=== PATIENT | male | born 1995 | race African-American/Black ===

== ENCOUNTER 2017-12-08 16:05 | Emergency (ER) | payer SELFPAY ==
[2017-12-08] MEDS ORDERED: traMADol HCl 50 MG TAB ONE (16:20)
[2017-12-08] MEDS ORDERED: Ibuprofen 800 MG TAB ONE (16:20)
== END 2017-12-08 16:25 | disposition home or self-care (01) ==
LOC: MADERS 16:05
DX: M54.5 Low back pain (principal)
CPT/HCPCS: 99283

== ENCOUNTER 2019-01-12 20:45 | Emergency (ER) | payer BC, SELFPAY ==
--- NOTE | 2019-01-12 21:15 | RAD ---
Left lower leg 2 views HISTORY: Left leg injury. FINDINGS: Tibia and fibula are intact. Tip of the lateral malleolus is excluded from the frontal view . No acute fracture or dislocation. IMPRESSION: No acute osseous abnormalities are demonstrated.
== END 2019-01-12 21:15 | disposition home or self-care (01) ==
LOC: MADERS 20:45
DX: S80.12XA Contusion of left lower leg, initial encounter (principal); W20.8XXA Other cause of strike by thrown, projected or falling object, initial encounter; Y93.52 Activity, horseback riding

== ENCOUNTER 2022-01-16 23:10 | Emergency (ER) | payer BC, SELFPAY ==
[~2022-01-16 23:10] MED LIST: Lactated Ringer's 1,000 ML BAG ONE; Sodium Chloride 0.9% 1,000 ML BAG ONE
[2022-01-16] MEDS ORDERED: Ondansetron PF 4 MG/2 ML Vial ONE (23:43)
[2022-01-16] MEDS ORDERED: Sodium Chloride 0.9% 1,000 ML ONE (23:43)
[2022-01-17 00:12] LABS: #Basophils 0.2 thou/uL (0.0-0.2); #Monocytes 0.5 thou/uL (0.11-0.59); #Neutrophils 11.9 thou/uL (1.40-6.50); %Basophils 1.3 % (0.0-1.0); %Lymphocytes 7.1 % (21.0-51.0); %Monocytes 3.9 % (0.0-10.0); %Neutrophils 87.7 % (42.0-75.0); Hemoglobin 15.5 g/dL (14.0-18.0); Mean Corpuscular HGB CONC 30.3 g/dL (32.0-36.0); Mean Corpuscular Hemoglobin 26.9 pg (27.0-31.0); Mean Corpuscular Volume 88.8 fL (78.0-98.0); Mean Platelet Volume 12.1 fL (7.4-10.4); Platelet Count 257 thou/uL (130-400); RBC Distribution Width 14.6 % (11.5-14.5); Red Blood Cell (RBC) Count 5.79 mill/uL (4.70-6.10); White Blood Cell (WBC) Count 13.5 thou/uL (4.8-10.8)
[2022-01-17 00:27] LABS: ALT (SGPT) 45 U/L (8-55); AST (SGOT) 38 U/L (5-34); Albumin 5.8 g/dL (3.5-5.0); Alkaline Phosphatase 122 U/L (40-110); Anion Gap 21 mmol/L (10-20); BUN (Urea Nitrogen) 28 mg/dL (8.9-20.6); Bilirubin, Total 0.9 mg/dL (0.2-1.2); CK (CPK) 2333 U/L (30-200); Calc. Creatinine Clearance 0 mL/min (70-130); Calcium 11.2 mg/dL (7.8-10.44); Carbon Dioxide 21 mmol/L (22-29); Chloride 106 mmol/L (98-107); Estimated GFR 35; Globulin 4.5 g/dL (2.4-3.5); Glucose 125 mg/dL (70-105); Lipase 9 U/L (8-78); Protein, Total 10.3 g/dL (6.0-8.3); Sodium 144 mmol/L (136-145)
[2022-01-17] MEDS ORDERED: Sodium Bicarb 50 MEQ/50 ML Abboject 8.4% SYRINGE ONE (06:16)
[2022-01-17] MEDS ORDERED: Dextrose 5% in Water 1,000 ML ONE (06:16)
== END 2022-01-17 06:50 | disposition short-term general hospital (02) ==
LOC: MADERS 23:10
DX: M62.82 Rhabdomyolysis (principal); E86.0 Dehydration; N28.9 Disorder of kidney and ureter, unspecified
CPT/HCPCS: 80053; 82550; 83690; 85025; 96361; 96374; J2405; J7050; J7070; J7120

== ENCOUNTER 2024-04-22 13:19 | Emergency (ER) | payer BC, SELFPAY ==
[2024-04-22] MEDS ORDERED: Morphine 4 MG/ML VIAL ONE (13:43)
== END 2024-04-22 14:20 | disposition home or self-care (01) ==
LOC: MADERS 13:19
DX: S82.141A Displaced bicondylar fracture of right tibia, initial encounter for closed fracture (principal); V80.010A Animal-rider injured by fall from or being thrown from horse in noncollision accident, initial encounter
CPT/HCPCS: 96372; 99283; J2272